=== PATIENT | male | born 1950 | race Caucasian/White ===

== ENCOUNTER 2019-08-13 12:08 | Day surgery (SDC) | payer MEDICARE, OTHER ==
[~2019-08-13] VITALS: Ht 193 cm; Wt 112.5 kg
[2019-08-13] VITALS (11 sets, daily range): BP systolic 117–159; BP diastolic 49–75; PULSE 66–79; TEMP 97.7–98.2
[2019-08-13] MEDS ORDERED: TOPROL XL 50MG50 MG PO (13:11)
--- NOTE | 2019-08-13 19:07 | NUR ---
Patient has done well since up from OR. Alert and oriented x 3. Assessment complete. Patient and spouse were oriented to room. Ruelas to dependent drainage with clear peach urine in bag. Patient stated that he had been feeling full and having pressure, bladder scanned for 0ml of fluid in bladder, urine flowing freely. B&O suppository given. Tolerating clear liquid diet and advanced to general diet for supper. VSS. Spouse at bedside. Denies further needs at this time. Reported off to police shift commander.
--- NOTE | 2019-08-13 21:00 | NUR ---
PATIENT SLEEPY, AWAKENS FOR PO MEDS. DENIES PAIN. GARCIA TO BSD WITH PINK TINGED URINE. IVF INFUSING TO RIGHT HAND WITHOUT REDNESS OR SWELLING. WILL MONITOR FOR CHANGES.
[2019-08-14 03:53] VITALS: BP 119/50; PULSE 77; TEMP 97.8
--- NOTE | 2019-08-14 05:30 | NUR ---
IVF CAPPED. PATIENT TAKING ORAL FLUIDS. URINE REMAINS PINK. DENIES NEED FOR PAIN MEDS AT THIS TIME.
[2019-08-14 07:48] LABS: HEMOGLOBIN 14.5 g/dl (13.5-18.0); MEAN CELL VOLUME 96 fl (80.0-100.0); MEAN CORPUSCULAR HEMOGLOBIN 32 pg (27.0-31.0); MEAN CORPUSCULAR HGB CONC 33 g/dl (33.0-37.0); MEAN PLATELET VOLUME 9.8 fl (7.4-10.4); PLATELET COUNT 128 K/mm3 (130-400); RED BLOOD COUNT 4.57 M/mm3 (4.20-5.60); REDCELL DISTRIBUTION WIDTH-CV 13.6 % (11.5-14.5)
[2019-08-14 08:00] LABS: CALCIUM 9.1 mg/dL (8.4-10.2); CREATININE, serum 0.68 (0.66-1.25); POTASSIUM 3.8 mmol/L (3.4-5.0)
[2019-08-14 09:11] VITALS: BP 124/64; PULSE 66; TEMP 97.9
--- NOTE | 2019-08-14 09:42 | NUR ---
SW met with the patient to discuss discharge plan. The patient lives outside of [place] with his , Renu (ph#[phone]). He reports independence with ADLs and has a cane. The patient's PCP is Dr. Mukesh Ross and he receives his medications at [facility]. He reports no difficulties obtaining his meds. The patient does not have advanced directives in EMR, but he states that he does have them completed. He states that his is his DPOA-HC. The patient plans to return home with his upon discharge. No additional needs at this time.
--- NOTE | 2019-08-14 10:14 | NUR ---
Patient resting in bed. Urology rounded. Plans for CT scan at 11, he will be NPO until completed. Jessenia Emery, we reviewed 6 bottle routine. Azo for pain, he reports buring sensation in penis. Patient tolerated breakfast, reports not being a big breakfast person. Scds. Will monitor.
--- NOTE | 2019-08-14 11:38 | NUR ---
Initial visit; Patient thanked Sheriff'S Detective for looking in on him and offering God's blessings.
[2019-08-14 12:33] VITALS: BP 120/49; PULSE 67; TEMP 97.7
--- NOTE | 2019-08-14 13:45 | NUR ---
Patient ready for discharge. rounded. Orders obtained. Patient has voided adequately. Int DC. All discharge paperwork reviewed with patient & his . Script for Pyridum called into pharmacy. Med list reviewed. Follow up scheduled for Monday. We reviewed diet & activity restrictions. Deny questions & concerns.
== END 2019-08-14 14:48 | disposition home or self-care (01) ==
LOC: SDCO 12:08 → SURG 16:20 → SDCO 08-14 14:48
PROVIDERS: Urology
DX: C67.2 Malignant neoplasm of lateral wall of bladder (principal); I10 Essential (primary) hypertension; Z79.899 Other long term (current) drug therapy; Z86.19 Personal history of other infectious and parasitic diseases; Z88.0 Allergy status to penicillin; Z85.038 Personal history of other malignant neoplasm of large intestine; Z87.891 Personal history of nicotine dependence
CPT/HCPCS: OP; C1769; C2617; J0690; J2405; J2704; J3010; J3480; J7120; Q9967

== ENCOUNTER 2019-08-21 06:08 | Day surgery (SDC) | payer MEDICARE, OTHER ==
[~2019-08-21] VITALS: Ht 193 cm; Wt 112.3 kg
[2019-08-21] VITALS (7 sets, daily range): BP systolic 124–144; BP diastolic 46–85; PULSE 59–66; TEMP 97–98.2
[~2019-08-21 06:08] MED LIST: TOPROL XL 50MG50 MG PO
--- NOTE | 2019-08-21 10:35 | NUR ---
Patient returns to room 5 per bed from PACU and is awake and alert. Patient is drinking water. Denies pain or nausea. IV fluids infusing and site is free of redness. Temp 97 and room air sats 99%. Denies pain or nausea.
[2019-08-21] MEDS ORDERED: PYRIDIUM 100MG100 MG PO (10:50)
--- NOTE | 2019-08-21 10:50 | NUR ---
Resting and continues to sip on water. Denies pain or nausea. Spouse in room.
--- NOTE | 2019-08-21 11:05 | NUR ---
Patient is resting and continues to drink water.
--- NOTE | 2019-08-21 11:20 | NUR ---
Given AZO 95 for complaints of bladder discomfort. Has done well drinking water. Eating muffin. Denies nausea.
--- NOTE | 2019-08-21 11:35 | NUR ---
Patient eating muffin. Denies pain or nausea. Continues to drink water.
--- NOTE | 2019-08-21 11:45 | NUR ---
Assisted up to the bathroom and is able to void blood tinged urine. States he does not feel that he emptyied his bladder completely. Concerned that he has a clot. Returns to room and is resting on bed. Drinking water.
--- NOTE | 2019-08-21 12:15 | NUR ---
Resting with eyes closed and spouse in room. Allowed to rest. Did drink another 16 ounces of water.
--- NOTE | 2019-08-21 12:35 | NUR ---
Patient up to the bathroom and voids a second time. States that his urine was less bloody and was able to empty bladder. IV discontinued and patient dresses self.
--- NOTE | 2019-08-21 13:00 | NUR ---
Dismissal instructions given and signed. Stressed the importance of forcing fluids and resting to allow healing. Voiced understanding of this and instructions signed. Provided script for Pryidium.
--- NOTE | 2019-08-21 13:07 | NUR ---
Patient dismissed to home per private vehicle driven by spouse and taken to the front door by wheelchair and assisted into car by this RN with dismissal instructions in hand.
== END 2019-08-21 13:07 | disposition home or self-care (01) ==
LOC: SDCO 06:08
DX: C67.9 Malignant neoplasm of bladder, unspecified (principal); I10 Essential (primary) hypertension; Z87.891 Personal history of nicotine dependence; Z80.1 Family history of malignant neoplasm of trachea, bronchus and lung; Z88.0 Allergy status to penicillin; Z79.899 Other long term (current) drug therapy; Z86.19 Personal history of other infectious and parasitic diseases
CPT/HCPCS: J0690; J1100; J1885; J2405; J2704; J3010; J7120

== ENCOUNTER 2019-08-31 20:26 | Observation (INO) | payer MEDICARE, OTHER ==
[~2019-08-31] VITALS: Ht 193 cm; Wt 112.8 kg
[~2019-08-31 20:26] MED LIST changes: +PYRIDIUM 100MG100 MG PO
[2019-08-31 21:47] LABS: BASO # 0.1 (0.0-0.2); BASO % 0.9 % (0.0-2.0); EOS # 0.4 (0.0-0.7); EOS % 4.6 % (0-4.0); GRAN # 6.2 (1.4-6.5); GRAN % 67.2 % (42.2-75.2); HEMATOCRIT 43.5 % (42.0-52.0); HEMOGLOBIN 14.6 g/dl (13.5-18.0); LYMPH # 1.6 (1.2-3.4); LYMPH % 16.8 % (20.0-51.0); MEAN CELL VOLUME 93 fl (80.0-100.0); MEAN CORPUSCULAR HEMOGLOBIN 31 pg (27.0-31.0); MEAN CORPUSCULAR HGB CONC 34 g/dl (33.0-37.0); MEAN PLATELET VOLUME 8.6 fl (7.4-10.4); MONO % 10.2 % (1.7-9.3); PLATELET COUNT 270 K/mm3 (130-400); RED BLOOD COUNT 4.66 M/mm3 (4.20-5.60); REDCELL DISTRIBUTION WIDTH-CV 13.4 % (11.5-14.5)
[2019-08-31 22:05] LABS: ALBUMIN 4.4 gm/dL (3.5-5.0); BILIRUBIN,TOTAL 0.8 mg/dL (0.0-1.0); CALCIUM 9.2 mg/dL (8.4-10.2); CREATININE, serum 0.67 (0.66-1.25); POTASSIUM 3.6 mmol/L (3.4-5.0)
[2019-08-31 23:28] LABS: COLLECTION METHOD CATHETER
[2019-08-31 23:34] LABS: PH 7 (5-8); SQUAMOUS EPITHELIAL None Seen /hpf; URINE APPEARANCE Hazy; URINE BACTERIA Rare /hpf; URINE BILIRUBIN Negative (NEGATIVE); URINE BLOOD 2+ (NEGATIVE); URINE COLOR Red; URINE GLUCOSE 1+ (NEGATIVE); URINE KETONE Negative (NEGATIVE); URINE LEUKOCYTE ESTERASE Trace (NEGATIVE); URINE NITRATE Negative (NEGATIVE); URINE PROTEIN(semi-quant) 2+ (NEGATIVE); URINE RBC >50 /hpf; URINE UROBILINOGEN Negative (NEGATIVE)
--- NOTE | 2019-08-31 23:47 | NUR ---
Pt arrived to unit from ED around 2330. Pt here with urinary retention. Alert and oriented with VSS. Denies pain. IV to L AC, NS running. CBI running. [address], draining bloody urine, minimal clots noted, small in size. Pt heart and lung sounds normal. REcently dx with bladder CA about 3 weeks ago. Plans to see Dr. Joaquin. Call light within reach, will continue to monitor
[2019-09-01] VITALS (7 sets, daily range): BP systolic 112–134; BP diastolic 50–63; PULSE 56–68; TEMP 97.4–98
--- NOTE | 2019-09-01 01:48 | NUR ---
Pt tolerating CBI well. Draining fruit punch colored urine, minimal dime sized clots.
--- NOTE | 2019-09-01 04:48 | NUR ---
Pt has done well throughout night, uneventful. CBI running, urine still pink tinged, fruit punch looking. Denies pain. Has slept most of night. Call light within reach, will continue to monitor
--- NOTE | 2019-09-01 07:30 | NUR ---
rounded. Orders to Prime and Pull, patient tolerated well. Ivf per orders, he remains Npo
--- NOTE | 2019-09-01 10:43 | NUR ---
Patient resides at home in [place], [place] his Renu Brady ([phone]) who is supportive of patient's needs. Patient is retired and typically independent with daily living activities and has no anticipated durable medical equipment needs at this time. Patient's primary care physician is SHERLEY Freed ([place]), his pharmacy is [facility] ([place]), and does not have advance directives of healthcare on file at this time. No further needs at this time and social and political studies professor will follow up as needed.
--- NOTE | 2019-09-01 17:50 | NUR ---
Patient has completed 6 bottle routine. wants patient to stay the night to continue to monitor output. Informed patient of this. He is agreeable. His urine remains dark, minimal clots now. He was having significant large clots when he started the 6 bottle routine this am. I did discuss & reviewed with patient activity restiction. He reports he was lifting 40 to 50 lbs yesterday. I reviewed with him why he should wait for a few weeks to be lifting heavy objects. He has progressed to general diet & tolerated well. PO fluid intake encouraged. Ivf remain. Student nurse assisted with cares today.
--- NOTE | 2019-09-01 18:35 | NUR ---
Hygeine offered on several occasions, patient refused, requesting to complete before bed this PM. In good spirits, no reported pain throughout the day.
--- NOTE | 2019-09-01 19:57 | NUR ---
Pt doing well overall, alert and oriented with vss. Heart and lung sounds normal. Doing 6 cup routine. Still red/pink in color, no clots noted. Pt denies pain. Denies needs at this time. CAll light within reach, will continue to monitor
[2019-09-02 00:17] VITALS: BP 109/55; PULSE 57; TEMP 97.5
--- NOTE | 2019-09-02 00:18 | NUR ---
Pt completed 6 cup routine, no clots noted. Urine is still red-tinged but has gotten clearer throughout voids. Pt denies pain. Call light within reach, will continue to monitor
[2019-09-02 04:40] VITALS: BP 139/57; PULSE 62; TEMP 98
--- NOTE | 2019-09-02 04:41 | NUR ---
Pt voided in urinal, about 400cc. Urine had 2 small dime sized clots. Otherwise clear, but darker in color than when finished 6 cup routine. PT stated he slept and was not drinking water
[2019-09-02 07:42] VITALS: BP 113/49; PULSE 78; TEMP 97.9
--- NOTE | 2019-09-02 08:00 | NUR ---
Patient sitting in bed resting. Student in room with patient. States he is ready to leave. Dr. Osullivan was in early to see patient. 6 cup complete, urine remains the same throughout the 6 cups. Patient states he is voiding without difficulties. Urine appers red-tinged. Alert and oriented x 3. Assessment complete. Discharge education provided to patient, educated on activity restriction and when to call [facility] office. Verbalizes understanding. All questions answered. Patient out with surgical staff by wheelchair.
== END 2019-09-02 08:00 | disposition home or self-care (01) ==
LOC: COL.ER 20:26 → SURG 22:32
PROVIDERS: Emergency Medicine; ADMIT Urology
DX: R31.0 Gross hematuria (principal); R33.9 Retention of urine, unspecified; C67.9 Malignant neoplasm of bladder, unspecified; Z87.891 Personal history of nicotine dependence; Z79.899 Other long term (current) drug therapy; Z88.0 Allergy status to penicillin; Z90.89 Acquired absence of other organs
CPT/HCPCS: G0378; J2270; J7030

== ENCOUNTER → 2019-09-11 | Outpatient (CLI) | payer MEDICARE, OTHER | LOC: COL.VAS 10:11 | DX: C67.2 Malignant neoplasm of lateral wall of bladder (principal) ==

== ENCOUNTER 2019-09-25 05:26 | Day surgery (SDC) | payer MEDICARE, OTHER ==
[~2019-09-25] VITALS: Ht 193 cm; Wt 116.2 kg
[2019-09-25 05:45] VITALS: BP 137/46; PULSE 87; TEMP 98.1
[2019-09-25 08:12] VITALS: BP 119/54; PULSE 79
[2019-09-25] MEDS ORDERED: NORCO 325 MG-51 TAB PO (08:24)
[2019-09-25 08:27] VITALS: BP 119/54; PULSE 79; TEMP 97.7
[2019-09-25 08:42] VITALS: BP 118/51; PULSE 71
== END 2019-09-25 09:00 | disposition home or self-care (01) ==
LOC: SDCO 05:26
DX: C67.9 Malignant neoplasm of bladder, unspecified (principal); I10 Essential (primary) hypertension; Z80.1 Family history of malignant neoplasm of trachea, bronchus and lung; Z82.3 Family history of stroke; Z88.0 Allergy status to penicillin; Z90.49 Acquired absence of other specified parts of digestive tract; G89.29 Other chronic pain
CPT/HCPCS: C1788; J0690; J1644; J2704

== ENCOUNTER 2019-10-22 12:52 | Inpatient (IN) | payer MEDICARE, OTHER ==
[~2019-10-22] VITALS: Ht 193 cm; Wt 113.6 kg
[~2019-10-22 12:52] MED LIST changes: +NORCO 325 MG-51 TAB PO
[2019-12-17 10:33] LABS: HEMATOCRIT 39.5 % (42.0-52.0); HEMOGLOBIN 13.2 g/dl (13.5-18.0); MEAN CELL VOLUME 98 fl (80.0-100.0); MEAN CORPUSCULAR HEMOGLOBIN 33 pg (27.0-31.0); MEAN CORPUSCULAR HGB CONC 33 g/dl (33.0-37.0); MEAN PLATELET VOLUME 8.5 fl (7.4-10.4); PLATELET COUNT 83 K/mm3 (130-400); RED BLOOD COUNT 4.04 M/mm3 (4.20-5.60)
[2019-12-17 10:39] LABS: PROTHROMBIN TIME 11.1 SECONDS (9.7-12.8)
[2019-12-17 10:41] LABS: PARTIAL THROMBOPLASTIN TIME 35.1 SECONDS (26.0-37.0)
[2019-12-17 10:46] LABS: ALBUMIN 4.2 gm/dL (3.5-5.0); BILIRUBIN,TOTAL 0.9 mg/dL (0.0-1.0); CALCIUM 9.6 mg/dL (8.4-10.2); CREATININE, serum 0.72 (0.66-1.25); POTASSIUM 4.9 mmol/L (3.4-5.0); TOTAL PROTEIN 7.9 gm/dL (6.4-8.2)
[2019-12-19] VITALS (9 sets, daily range): BP systolic 111–153; BP diastolic 57–75; PULSE 74–82; TEMP 97.4–98
[2019-12-19 06:36] LABS: BASO # 0.1 (0.0-0.2); EOS # 0.6 (0.0-0.7); EOS % 9.6 % (0-4.0); GRAN # 2.7 (1.4-6.5); GRAN % 46.8 % (42.2-75.2); HEMOGLOBIN 12.4 g/dl (13.5-18.0); LYMPH # 1.4 (1.2-3.4); MEAN CELL VOLUME 96 fl (80.0-100.0); MEAN CORPUSCULAR HEMOGLOBIN 33 pg (27.0-31.0); MEAN CORPUSCULAR HGB CONC 34 g/dl (33.0-37.0); MEAN PLATELET VOLUME 9.1 fl (7.4-10.4); MONO # 1.1 (0.1-0.6); MONO % 18.3 % (1.7-9.3); PLATELET COUNT 88 K/mm3 (130-400); RED BLOOD COUNT 3.82 M/mm3 (4.20-5.60); REDCELL DISTRIBUTION WIDTH-CV 19.2 % (11.5-14.5)
[2019-12-19 06:38] LABS: HEMATOCRIT 36.8 % (42.0-52.0)
--- NOTE | 2019-12-19 06:47 | NUR ---
TO RM AT 0542- ALERT ORIENTED X3, VERBALIZED UNDERSTANDING WITH . SIGNED CONSENT PER PATIENT REQUEST
[2019-12-19] MEDS ORDERED: ONE-A-DAY ESSE1 EACH PO (06:49)
[2019-12-19 06:51] LABS: PROTHROMBIN TIME 11.1 SECONDS (9.7-12.8)
--- NOTE | 2019-12-19 06:53 | NUR ---
TAKEN TO PACU
[2019-12-19 06:54] LABS: ALBUMIN 4.1 gm/dL (3.5-5.0); BILIRUBIN,TOTAL 0.7 mg/dL (0.0-1.0); CALCIUM 9.2 mg/dL (8.4-10.2); CREATININE, serum 0.6 (0.66-1.25); TOTAL PROTEIN 7.5 gm/dL (6.4-8.2)
--- NOTE | 2019-12-19 14:00 | NUR ---
Patient arrived to Surgical room 347 from PACU at this time, he is alert/oriented, pain is controlled, vital signs stable, incision dressing C/D/I, at bedside, will continue to monitor
--- NOTE | 2019-12-19 15:31 | NUR ---
Continues to do well post-op, VSS, pain controlled
--- NOTE | 2019-12-19 18:02 | NUR ---
Patient continues to do well post-op, resting comfortably, good ouput from illeal conduit/ placed to dependent drainage bag, small amount of bloody drainage from KIM drain, dressing C/D/I, vital signs remain stable
[2019-12-19 20:45] LABS: BASO % 0.1 % (0.0-2.0); GRAN # 8.1 (1.4-6.5); GRAN % 80.8 % (42.2-75.2); LYMPH # 0.4 (1.2-3.4); LYMPH % 3.9 % (20.0-51.0); MEAN CELL VOLUME 98 fl (80.0-100.0); MEAN CORPUSCULAR HGB CONC 33 g/dl (33.0-37.0); MEAN PLATELET VOLUME 9.4 fl (7.4-10.4); MONO # 1.5 (0.1-0.6); MONO % 14.4 % (1.7-9.3); PLATELET COUNT 80 K/mm3 (130-400); RED BLOOD COUNT 3.21 M/mm3 (4.20-5.60); REDCELL DISTRIBUTION WIDTH-CV 19.4 % (11.5-14.5)
[2019-12-19 20:46] LABS: HEMATOCRIT 31.6 % (42.0-52.0); HEMOGLOBIN 10.4 g/dl (13.5-18.0); MEAN CORPUSCULAR HEMOGLOBIN 32 pg (27.0-31.0)
[2019-12-20] VITALS (7 sets, daily range): BP systolic 101–124; BP diastolic 48–70; PULSE 78–87; TEMP 97.5–98.7
--- NOTE | 2019-12-20 04:16 | NUR ---
Patient has rested well throughout the night. States pain is well managed with epidural. Site to back is CDI. KIM drain to left side draining moderate amount of bloody drainage. Drainage noted to saturate patient's bed from a leak under the ileostomy appliance. Bed changed and dressing changed. 4x4 gauze and medipore tape applied. Stents flushed with 3ml as per orders. IVF continue to left portacath. Patient continues to be NPO per orders. Ruelas catheter draining very dark bloody drainage and ileal conduit draining moderately bloody drainage. Patient denies any further needs. Will continue to monitor.
[2019-12-20 07:41] LABS: MEAN CELL VOLUME 101 fl (80.0-100.0); MEAN CORPUSCULAR HGB CONC 33 g/dl (33.0-37.0); MEAN PLATELET VOLUME 9.9 fl (7.4-10.4); PLATELET COUNT 91 K/mm3 (130-400); RED BLOOD COUNT 2.83 M/mm3 (4.20-5.60); REDCELL DISTRIBUTION WIDTH-CV 19.6 % (11.5-14.5)
[2019-12-20 07:47] LABS: CALCIUM 7.8 mg/dL (8.4-10.2); CREATININE, serum 0.89 (0.66-1.25); POTASSIUM 4.4 mmol/L (3.4-5.0)
[2019-12-20 07:52] LABS: HEMATOCRIT 28.5 % (42.0-52.0); HEMOGLOBIN 9.3 g/dl (13.5-18.0); MEAN CORPUSCULAR HEMOGLOBIN 33 pg (27.0-31.0)
[2019-12-20 08:55] LABS: BAND 3 % (0-10); BASOPHIL 1 % (0-2); EOSINOPHIL 1 % (0-4); LYMPHOCYTE 13 % (20.0-51.0); NEUTROPHILS 61 % (42.0-75.2); PLATELET ESTIMATE DECREASED (NORMAL)
--- NOTE | 2019-12-20 10:37 | NUR ---
Patient awake & alert. Urology rounded this am. He is having some pain, anesthesia rounded & adjusted epidural. Patient pain sensitive to even touch to abdomen. Patient encouraged to increase activity. We were only able to dangle at bedside, he felt like he may "black out". Will try again this afternoon. Patient having leaking at stoma site. New ostomy appliace placed with barrier waffer to try and prevent leaking. Midline nessa intact with drainge noted to approximal part of incision. KIM drain to compression. oRjas dc per orders. Sips of clears offered. He denies nausea. Scds ble. INt to RFA. Port to left chest.
--- NOTE | 2019-12-20 15:20 | NUR ---
Manager Heavy Equipment met with patient and patient's Renu (ph#[phone]) to discuss discharge planning. Patient lives in [place] with Renu and their two dogs. Patient doesn't have a primary care physician at this time but Renu advised patient will follow up with Dr. Juraez, who is who she sees. Patient obtains medications from [facility]. Patient has a walker and cane but doesn't use them normally. Patient reports independence with ADLS and plans to return home upon discharge. No needs identified at this time.
--- NOTE | 2019-12-20 19:45 | NUR ---
Patient ostomy appliance changed 2 more times, continues to have leaking. Stoma red, mucus present. Convex wafer used & adapt rings used. Stents flushed with 3 mls again. Patient is very fortunate, his has experience with ostomy care & did assist with a appliance change. Patient midline nessa open to air at this time. KIM drain remains to compression. Port with IVF per orders. He denies nausea. He has tolerated ice chips today, no other interest in clears. Scds ble. Physical threapy consult. Patient is very slow to move & needs alot of encouragement. Epidrual continues to manage pain. Report to night nurse.
[2019-12-21 04:09] VITALS: BP 113/50; PULSE 84; TEMP 97.6
--- NOTE | 2019-12-21 05:15 | NUR ---
Patient has rested well throughout the night. Pain well managed with epidural. Site is clean, dry, and intact with tegaderm dressing. KIM drain open to air and noted to have 50ml of bloody drainage. Ileal conduit to a urostomy bag and to dependent drainage. 850ml of dark red urine noted from ileal conduit. [place] [employer] to midline are intact. Portacath to left chest is infusing IVF as ordered. Patient stood up at the side of the bed this shift with assist from staff. Dressing was changed to abdomen at shift change. Patient denies any further needs. Will continue to monitor.
--- NOTE | 2019-12-21 07:28 | NUR ---
Sitting up in bed with eyes open. Rates pain 4/10, in abdomen, describes as a dull ache, hurts with movement. Midline abd incision with nessa intact, no redness, swelling, discharge from site. KIM compressed with minimal drainage in bulb. Ileal conduit with bag intact draining tea colored urine into elkins bag. Epidural site intact wihtout redness, swelling, discharge. Patient denies further needs at this time.
[2019-12-21 07:34] VITALS: BP 117/49; PULSE 87; TEMP 97.4
[2019-12-21 11:45] VITALS: BP 111/52; PULSE 80; TEMP 97.7
--- NOTE | 2019-12-21 15:54 | NUR ---
Patient sitting up in bed with eyes open. Rates pain 5/10 in abdomen, explains this is tolerable. Patient says that he was able to stand at side of bed with assist of BELLOWS TESTERAlma Rosa, for a little bit. Says he got a little bit lightheaded but not like he was yesterday. Explains that he feels good at this time. Denies further needs.
[2019-12-21 16:00] VITALS: BP 115/61; PULSE 82; TEMP 97.6
--- NOTE | 2019-12-21 18:17 | NUR ---
Epidural empty. Contacted Anshul Encinas, anesthesia, and he will come in to refill epidural.
[2019-12-21 19:48] VITALS: BP 109/48; PULSE 76; TEMP 97.6
--- NOTE | 2019-12-21 19:55 | NUR ---
Received report from CASTRO Bustos. Pt currently sitting up in bed and his call liht within reach.
--- NOTE | 2019-12-21 22:15 | NUR ---
Pt is currently sitting up in bed. Pt has no complaints of pain at this time. Pt has serosanguineous drainage in in has KIM drain. Pt ileal conduit drain has tea colored drainage. Pt states that he feels fine and doesn't need anything at this time. Pt has his call light within reach.
[2019-12-22] VITALS: BP 128/52; PULSE 76; TEMP 97.8
--- NOTE | 2019-12-22 | NUR ---
Pt awake in room on his computer. Pt stated that he doesn't need anything at this time. He stated that he stays up late sometimes at night. Pt has his call light within reach.
--- NOTE | 2019-12-22 03:15 | NUR ---
Pt is still awake in his room playing games on his computer. He stated that he feels fine and he will call out if he needs us for anything. Pt has his call light within reach and his bed is in lowest position .
[2019-12-22 04:22] VITALS: BP 109/52; PULSE 80; TEMP 97.8
--- NOTE | 2019-12-22 07:15 | NUR ---
Reported off to CASTRO Bustos. Pt currently sitting up in bed on his computer. He has his call light within reach.
--- NOTE | 2019-12-22 07:24 | NUR ---
Sitting up in bed watching computer. Denies pain at this time. Epidural site without redness/swelling/discharge, tegaderm and tape intact. Patient says that he has still had to use the epidural but not a lot. Mid abd incision well approximated, nessa intact, no swelling/redness/discharge. Ileal conduit with bag intact draining urine into elkins bag. Urine color is dark tea color, clear. KIM drain with bulb compressed, minimal serosanguinous drainage in tubing and bulb. Patient says that he has been able to pass gas. Denies N/V. No further needs at this time.
[2019-12-22 07:51] VITALS: BP 133/60; PULSE 80; TEMP 97.5
[2019-12-22 11:26] VITALS: BP 130/55; PULSE 75; TEMP 97.9
--- NOTE | 2019-12-22 13:31 | NUR ---
Patient reports that anesthesia was in room and removed epidural at about 1320. Rates pain in abd at this time 12/17 and would like to take a Moran to stay ahead of the pain. Will administer Moran as prescribed. in room with the patient.
--- NOTE | 2019-12-22 13:36 | NUR ---
Provided the patient with patient education material on ostomy and care at home to read through and to write down questions that he has. Patient is in room and she is a nurse and she has a certification in ostomy care. Patient will review and write down questions as he comes up with them. Patient says that Dr. Mcmullen told him that he would be here until at least Monday and Dr. Osullivan told him that he would leave tomorrow. Patient says that he does not feel he is quite ready to go home at this time. Provided reassurance and explained that Dr. Mcmullen will reassess him tomorrow and to bring up concerns at that time. Patient denies further needs at this time.
[2019-12-22 15:22] VITALS: BP 116/48; PULSE 68; TEMP 97.9
--- NOTE | 2019-12-22 16:03 | NUR ---
Sitting up in bed looking at computer. in room with the patient. Patient says the [place] really helped to alleviate the pain that he was having. Denies any pain at this time. Denies any additional needs.
--- NOTE | 2019-12-22 17:50 | NUR ---
Lying in bed with eyes closed. Opens eyes when moving supper tray. Patient denies pain or nausea at this time. Denies any additional needs.
--- NOTE | 2019-12-22 20:00 | NUR ---
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 Assessment complete. A&Ox3. Denies pain/shortness of breath/nausea. Has ambulated in the hallway today. Incision to midline abdomen-nessa intact-no s/s of infection noted. Dressing to KIM drain small amount of drainage. KIM drain with 15mls serosanguineous fluid. Urine output tea colored with sediment. Right FA INT red/swollen/sore-DCd at this time. Cath intact. Port to left chest with NSV@75ml/hr. +flatus. SCDs. Denies needs. Call light in reach. Will monitor.
[2019-12-22 20:55] VITALS: BP 145/62; PULSE 69; TEMP 97.7
[2019-12-23] VITALS (9 sets, daily range): BP systolic 125–153; BP diastolic 56–65; PULSE 68–80; TEMP 97.2–98.1
--- NOTE | 2019-12-23 07:32 | NUR ---
Dr Mcmullen here to see patient.
--- NOTE | 2019-12-23 10:00 | NUR ---
Patient alert and oriented, answers questions appropriately. See assessment. Abdomen soft, non distended, mild tenderness noted to midline incision and ileal conduit site. +Flatus. Midline incision with edges well approximated, no redness or drainage noted, nessa intact. Ileal conduit to RUQ with stoma pink and protruding, draining clear jeff urine. KIM drain to LLQ with sutures intact, bulb compressed, bloody drainage noted. Post op exercises reviewed with patient. No c/o at this time.
--- NOTE | 2019-12-23 19:50 | NUR ---
Report received. 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 Assessment complete. VS stable. A&Ox3. Denies pain/shortness of breath/nausea. KIM drain with 45mls of bloody fluid. Ileal conduit with yellow output-sediment noted. Midline abdominal incision-nessa intact-no s/s of infection noted. Port to left chest flushes without difficulty. KIM drain with bloody output-approx 40mls. Concerned about getting supplies for home for ostomy care-will pass on in report need for getting it organized. Denies any other questions/concerns. Call light in reach. Will monitor.
--- NOTE | 2019-12-23 21:15 | NUR ---
C/O pain to left side as well as abdomen. Rating pain 6/10-described as constant ache/throb. [place] one tab given per dr order. Will monitor.
[2019-12-24 04:28] VITALS: BP 144/56; PULSE 72; TEMP 97.7
--- NOTE | 2019-12-24 04:51 | NUR ---
Slept well this shift. Received norco twice for pain to left side/flank-good relief. Ileal conduit with 2800 out total this shift-yellow in color with sediment. KIM drain with a total of 50mls serosanguineous fluid. Denies nausea/shortness of breath. Call light in reach. Will monitor.
[2019-12-24 07:12] VITALS: BP 152/54; PULSE 73; TEMP 97.6
--- NOTE | 2019-12-24 08:45 | NUR ---
Maxwell, urology PA here to see patient.
--- NOTE | 2019-12-24 10:00 | NUR ---
Patient alert and oriented, answers questions appropriately. See assessment. Abdomen soft, non tender, non distended. Bowel sounds active x4 quads. +Flatus. Midline incision with nessa intact, no redness or drainage noted. KIM drain to LLQ with bulb compressed, serosanguinous drainage noted in bulb. Ileal conduit connected to drainage bag, urine clear. Post op exercises reviewed with patient. No c/o at this time.
--- NOTE | 2019-12-24 10:47 | NUR ---
The patient is to discharge back home with his today, 12/23. SW met with the patient and presented and read the IM form outloud to the patient. The patient verbalized understanding and gave SW approval to sign the form on his behalf. SW provided him with a copy. No additional needs at this time.
[2019-12-24 11:14] VITALS: BP 147/58; PULSE 71; TEMP 97.3
--- NOTE | 2019-12-24 13:25 | NUR ---
KIM drain discontinued at this time. Dr Hearn here to see patient.
--- NOTE | 2019-12-24 14:26 | NUR ---
PAC flushed with heparin and deaccessed.
--- NOTE | 2019-12-24 14:45 | NUR ---
Discharge instructions reviewed with patient and spouse, verbalized understanding. Discharged via wheelchair to auto/home with spouse a 4251. New ostomy education reviewed with patient and spouse. Dr Mcmullen office notified of need for new ostomy supplies.
== END 2019-12-24 14:45 | disposition home or self-care (01) | DRG 655 ==
LOC: INPTSU 12-19 05:32 → SURG 12-19 07:30
PROVIDERS: ADMIT Urology
PROC: 0T180ZC Bypass Bilateral Ureters to Ileocutaneous, Open Approach (ICD-10-PCS; 2019-12-19)
PROC: 07BC0ZZ Excision of Pelvis Lymphatic, Open Approach (ICD-10-PCS; 2019-12-19)
PROC: 0TTB0ZZ Resection of Bladder, Open Approach (ICD-10-PCS; principal; 2019-12-19 07:30)
DX: C67.2 Malignant neoplasm of lateral wall of bladder (principal); I10 Essential (primary) hypertension; Z87.891 Personal history of nicotine dependence
CPT/HCPCS: A9284; C1758; C2617; J1100; J1170; J1644; J1956; J2250; J2405; J2704; J2765; J2795; J3010; J7030; J7120

== ENCOUNTER 2021-08-24 10:30 | Inpatient (IN) | payer MEDICARE, OTHER ==
[2021-08-24] VITALS (11 sets, daily range): BP systolic 132–168; BP diastolic 63–77; PULSE 16–81; TEMP 97.7–98.5
[~2021-08-24] VITALS: Ht 193 cm; Wt 106.8 kg
[~2021-08-24 10:30] MED LIST changes: +ONE-A-DAY ESSE1 EACH PO
--- NOTE | 2021-08-24 11:39 | NUR ---
CASTRO PAULSON CALLED AND TOLD CASTRO ORDONEZ THAT DR KILPATRICK IS FINISHING WITH HIS PORT AND TO START THE IV FLAGYL.
[2021-08-24 11:40] LABS: HEMOGLOBIN 11.3 g/dl (13.5-18.0); MEAN CELL VOLUME 84 fl (80.0-100.0); MEAN CORPUSCULAR HEMOGLOBIN 27 pg (27-31); MEAN CORPUSCULAR HGB CONC 32 g/dl (33.0-37.0); MEAN PLATELET VOLUME 8.7 fl (7.4-10.4); PLATELET COUNT 131 K/mm3 (130-400); RED BLOOD COUNT 4.22 M/mm3 (4.20-5.60); REDCELL DISTRIBUTION WIDTH-CV 16.1 % (11.5-14.5)
[2021-08-24 11:41] LABS: HEMATOCRIT 35.4 % (42.0-52.0)
[2021-08-24 12:19] LABS: CALCIUM 8.6 mg/dL (8.4-10.2); CREATININE, serum 0.93 mg/dL (0.72-1.25); POTASSIUM 3.8 mmol/L (3.5-4.5)
--- NOTE | 2021-08-24 17:20 | NUR ---
PT TO ROOM 350 PER BED WITH REPORT FROM RACHANA REBAR FABRICATOR @1700. PT IS A/O X3. LUNGS CTA, BOWEL SOUNDS ABSENT. MIDLINE INCISION CDI WITH GAUZE AND TAPE OVER SURGICAL WOUNDS. ILIOSTOMY BAG TO RIGHT SIDE OF ABDOMEN. EPIDURAL @ 12MLS. IV PER PUMP. PT ON O2 @ 2lPNC.
[2021-08-25] VITALS (8 sets, daily range): BP systolic 88–111; BP diastolic 42–62; PULSE 71–718; TEMP 97.9–98.2
--- NOTE | 2021-08-25 03:30 | NUR ---
Report received from day shift nurse. Patient is A&Ox4 and lying in bed watching television. Spouse at the bedside. Assessment and medication administration completed without difficulty. Patient tolerating CLD well. Bowel sounds are present. Midline incision covered with gauze and tape, CD&I. Patient denies having any pain, no other complaints at this time. Call light within reach.
--- NOTE | 2021-08-25 05:43 | NUR ---
Patient here due to a left colectomy, bowel sounds hypoactive in al quadrants. Patient had a quiet night and has been pleasant throughout the shift. Blood draw performed this morning at approximately 0530. Patient complains of intermittent abdominal pain, rates it a 3/10. Patient has right external jugular IV site as well as an IV in his right hand. Patient also has a left port that has not been accessed. Patient has no other complaints at this time. Call light within reach.
[2021-08-25 06:24] LABS: HEMATOCRIT 31.6 % (42.0-52.0); HEMOGLOBIN 9.8 g/dl (13.5-18.0)
[2021-08-25 06:36] LABS: CREATININE, serum 0.85 mg/dL (0.72-1.25); POTASSIUM 4.2 mmol/L (3.5-4.5)
--- NOTE | 2021-08-25 08:00 | NUR ---
Assessment complete. Right intrajugular INT is clean with no signs of infiltration or phlebitis. Right hand IV is flowing at 100mL\hr with Lactated Ringers. No sign of phlebitis or infiltration. Gauze dressing over the abdomen is clean, dry, and intact. Patient rates pain a 5 out 10. Ilostomy bag is intact and draining urine into catheter.
--- NOTE | 2021-08-25 08:43 | NUR ---
Patient resting in bed. I did speak to update given, we discussed soft BP. Holding Toprol. I also spoke to Sally TREJO, epidural turned down to 9 an hour. Patient was assisted to dangle at edge of bed. He was weak on his feet & felt lightheaded, he was 2 assist and unable to take steps. assisted with hygine, fresh linens. Lotion to skin, he is itchy. He refused orals cares, reports his will help tonight. Midline gauze intact. abdomen soft. denies yet passing flatus. IVf. Illeoconduit to DD. adequate urine output. Will monitor.
--- NOTE | 2021-08-25 10:03 | NUR ---
Initial visit; Patient former thanked Client Project Coordinator for visit, listening, prayer and keeping him in her prayers.
--- NOTE | 2021-08-25 12:12 | NUR ---
Patietn resting in bed. Sleeping soundly at this time. Blood pressures improving.
[2021-08-25] MEDS ORDERED: HYDROCORTISONE30 G3 (15:37)
--- NOTE | 2021-08-25 16:12 | NUR ---
Patient assisted to bedside. He was able to dangle and breifly stand at bedside. He continues to have numbness in his legs when he stands and unable to safely take steps. His blood pressure still soft. He reports getting up was better this afternoon then it was this am. Patient continues to be itchy. Spoke to hydrocortisone cream ordered per patient request, he reports using at home for chronic itching. hospital lotion was applied to skin & benadryl offered. Patient did not want benadyl, he did not want to be sleepy. He is expecting his to visit this evening. Will continue to monitor.
--- NOTE | 2021-08-25 19:13 | NUR ---
Bedside report to Martha. Patient reports itching is improved since recieving hydrosone cream. Epidrual continue to manage pain, but he does continue to reports numbness in his thighs.
--- NOTE | 2021-08-25 23:06 | NUR ---
DISCUSSED WITH PATIENT HOLDING HIS METOPROLOL FOR SOFT BP AND HE IS AGREEABLE. DENIES BREAKTHROUGH PAIN, EPIDURAL INFUSING. DENIES NAUSEA. ABD MIDLINE CDI WITH GAUZE AND TAPE. UROSTOMY TO GARCIA BAG WITH ORANGE/YELLOW OUTPUT. R IJ INT CDI AND R HAND IV WITH LR INFUSING. NO COMPLAINTS OF ITCHING AT THIS TIME. PATIENT RESTING IN BED, CALL LIGHT WITHIN REACH.
--- NOTE | 2021-08-26 01:19 | NUR ---
PATIENT UP TO FLOOR AT 1920. ALERT AND ORIENTED. DENIES PAIN CONTROL NEEDS. 3 L O2 VIA NC BUT SWITCHED TO BIPAP AT BEDTIME. R AC IV WITH INT ABX INFUSING. PATIENT USES URINAL WHEN NEEDED WITH HELP. SPUTUM CX CUP AT BEDSIDE. C/O RESTLESS LEG AND DISCUSSED WITH AMIRA GÓMEZ TO RESTART HOME MEDS. BP WAS HIGH ON ARRIVAL TO FLOOR AND PRN HYDRALAZINE WAS GIVEN AND BP NOW ACCEPTABLE RANGE PER ORDER.
[2021-08-26 04:07] VITALS: BP 127/57; PULSE 92; TEMP 98.6
[2021-08-26 06:41] LABS: CALCIUM 7.9 mg/dL (8.4-10.2); CREATININE, serum 0.76 mg/dL (0.72-1.25)
[2021-08-26 06:49] LABS: HEMATOCRIT 28.1 % (42.0-52.0); HEMOGLOBIN 8.7 g/dl (13.5-18.0)
[2021-08-26 07:51] VITALS: BP 137/73; PULSE 89; TEMP 97.6
[2021-08-26 11:15] VITALS: BP 139/61; PULSE 75; TEMP 98
--- NOTE | 2021-08-26 15:08 | NUR ---
barrow worker helper met with patient to discuss discharge plan. Patient reports that he lives at home with his Renu ([phone]) in [place]. present at bedside. Patient reports to being independent with his activities of daily living and will utilize a cane PRN to assist with mobility. Patient has no oxygen needs at home. PCP is Dr. Juarez and he utilizes [facility] for medications with no cost difficulty. Patient reports that he does have a DPO[employer]-HC established and that his agent listed is his . Upon discharge, patient is planning on returning home with no concerns. Discharge plan: Home
[2021-08-26 15:41] VITALS: BP 122/57; PULSE 82; TEMP 98.5
--- NOTE | 2021-08-26 16:50 | NUR ---
AGREE WITH STUDENT'S ASSESSMENTS OF THIS PT TODAY.
[2021-08-26 19:17] VITALS: BP 119/55; PULSE 71; TEMP 98
--- NOTE | 2021-08-26 21:00 | NUR ---
PATIENT IS RESTING IN BED.PATIENT DENIES PAIN.PATIENT IS ON EPIDURAL ANALGESIA DRIPPING WELL.PATIENT IS INDEPENDENT IN THE ROOM.PATIENT REPORTS NAUSEA MEDICATION GIVEN PER MAR.CALL LIGHT WITHIN REACH.PATIENT STATES THAT HE TAKES LOPRESSOR 25MG INSTEAD OF THE 50MG PRESCRIBED.CALL LIGHT WITHIN REACH.NO OTHER NEEDS AT THIS TIME.
[2021-08-26 23:57] VITALS: BP 116/48; PULSE 76; TEMP 97.6
[2021-08-27] VITALS (7 sets, daily range): BP systolic 102–144; BP diastolic 50–69; PULSE 65–81; TEMP 97.6–98.4
--- NOTE | 2021-08-27 05:50 | NUR ---
PATIENT HAD A CALM NIGHT.PATIENT DENIES PAIN.PATIENT IS ON EPIDURAL ANALGESIA.SAFETY MEASURES IN PLACE.NO OTHER NEEDS AT THIS TIME.
[2021-08-27 06:49] LABS: HEMATOCRIT 31.7 % (42.0-52.0); HEMOGLOBIN 9.8 g/dl (13.5-18.0)
--- NOTE | 2021-08-27 08:48 | NUR ---
Patient up to chair this am> student nurse assisting with cares> we gave patient a full bed bath and fresh linens<he reports he will complete his own oral cares and refused shower cap> patient chronically itchy and scratches noted throughout his body(legs<arms<abdomen<back) Cream applied to body> midline abdomen dressing removed & nessa intact< new ostomy appliace to illeoconduit< stoma pink> int> tolerating clears without nausea> reports minimal flatus>bowel sounds heard> will continue to monitor>
--- NOTE | 2021-08-27 09:47 | NUR ---
Patient back to bed. Resting. Will monitor.
--- NOTE | 2021-08-27 10:04 | NUR ---
rounded. Plan of care reviewed. Patient agreeable to take his toprol.
--- NOTE | 2021-08-27 11:44 | NUR ---
Patient resting in bed. Denies an increase in pain since epidural removed. Pb sandoval
--- NOTE | 2021-08-27 12:41 | NUR ---
Offered patient a low fiber lunch, no interest at this time.
--- NOTE | 2021-08-27 16:38 | NUR ---
Attempted to get patient to ambulate the halls. Patient refused. Patient even got upset when asked. Reports he will do it tmrw. He states he is into the TV show and did not want to get up. Patient has been down in spirits today since he got his pathology reports new from . continued to try to encourage po intake, he has no interest.
--- NOTE | 2021-08-27 19:07 | NUR ---
Patient sitting up in bed eating eggs and toast, denies needs. REport to [facility]
[2021-08-28 00:16] VITALS: BP 152/70; PULSE 72; TEMP 98
[2021-08-28 04:08] VITALS: BP 151/69; PULSE 67; TEMP 98
[2021-08-28 07:31] VITALS: BP 129/65; PULSE 76; TEMP 97.5
--- NOTE | 2021-08-28 08:26 | NUR ---
Patient did well with brekfast of egg and toast. Denies nausea. Denies pain. Reports flatus & Bm over night. Midline nessa intact. Abdomen soft. bowels audible. Patient hopeful for discharge home today.
--- NOTE | 2021-08-28 09:28 | NUR ---
rounded. Dischagre orders received. Patient Int to [facility]. Patietn layed supine for removal & valsua manuver & Pressure held, gauze & tega derm dressing applied. patient tolerated well.
--- NOTE | 2021-08-28 10:57 | NUR ---
Patient ready for discharge. His taking him home. We reviewed all discharge teaching inclusing low fiber diet, home meds list, tyelnol & motrin for pain as needed. Incisions cares & follow up appt discussed. Patient wheeled out with all belongings. deny questions or concerns.
== END 2021-08-28 10:59 | disposition home or self-care (01) | DRG 330 ==
LOC: INPTSU 10:30 → SURG 10:30
PROVIDERS: Nurse Anesthetist, Certified Registered; Surgery; ADMIT Surgery
PROC: 0DNL0ZZ Release Transverse Colon, Open Approach (ICD-10-PCS; 2021-08-24)
PROC: 0DBM0ZZ Excision of Descending Colon, Open Approach (ICD-10-PCS; principal; 2021-08-24 12:30)
DX: C18.6 Malignant neoplasm of descending colon (principal); C77.2 Secondary and unspecified malignant neoplasm of intra-abdominal lymph nodes; G62.9 Polyneuropathy, unspecified; I10 Essential (primary) hypertension; D64.9 Anemia, unspecified; G89.29 Other chronic pain; M54.9 Dorsalgia, unspecified; M25.512 Pain in left shoulder; Z93.6 Other artificial openings of urinary tract status; Z85.51 Personal history of malignant neoplasm of bladder; Z88.0 Allergy status to penicillin
CPT/HCPCS: A9284; J0690; J1170; J2250; J2370; J2405; J2704; J3010; J7120